=== PATIENT | female | born 1935 | race Caucasian/White ===

== ENCOUNTER → 2017-01-02 | Outpatient (CLI) | payer BC | LOC: MC.RAD 14:20 | DX: Z12.31 Encounter for screening mammogram for malignant neoplasm of breast (principal) ==

== ENCOUNTER → 2018-01-03 | Outpatient (CLI) | payer BC | LOC: MC.RAD 13:15 | DX: Z12.31 Encounter for screening mammogram for malignant neoplasm of breast (principal) ==

== ENCOUNTER → 2019-02-11 | Outpatient (CLI) | payer BC | LOC: MC.RAD 11:39 | DX: Z12.31 Encounter for screening mammogram for malignant neoplasm of breast (principal) ==

== ENCOUNTER 2021-11-28 20:34 | Emergency (ER) | payer BC ==
[~2021-11-28] VITALS: Ht 165.1 cm; Wt 72.7 kg
[2021-11-28] MEDS ORDERED: NORCO 325 MG-51 TAB PO (22:31)
[2021-11-28 22:54] VITALS: BP 140/73; PULSE 81; TEMP 98.7
== END 2021-11-28 22:54 | disposition home or self-care (01) ==
LOC: COL.ER 20:34
DX: S42.291A Other displaced fracture of upper end of right humerus, initial encounter for closed fracture (principal); W01.0XXA Fall on same level from slipping, tripping and stumbling without subsequent striking against object, initial encounter; Y93.44 Activity, trampolining; Y92.009 Unspecified place in unspecified non-institutional (private) residence as the place of occurrence of the external cause

== ENCOUNTER 2021-12-01 06:55 | Emergency (ER) | payer BC ==
[~2021-12-01] VITALS: Ht 165.1 cm; Wt 70.5 kg
[~2021-12-01 06:55] MED LIST: NORCO 325 MG-51 TAB PO
[2021-12-01 07:04] VITALS: TEMP 98.3
[2021-12-01 08:42] VITALS: BP 126/46; PULSE 77
== END 2021-12-01 09:00 | disposition home or self-care (01) ==
LOC: COL.ER 06:55
DX: M79.89 Other specified soft tissue disorders (principal); S50.11XA Contusion of right forearm, initial encounter; R60.0 Localized edema; W19.XXXA Unspecified fall, initial encounter